=== PATIENT | male | born 1935 | race Caucasian/White ===

== ENCOUNTER 2022-01-19 10:52 | Emergency (ER) | payer OTHER, MEDICARE, BC ==
[2022-01-19 11:36] LABS: ESTIMATED GFR 65 mL/min (>60)
[2022-01-19] MEDS ORDERED: Diphtheria,Pertussis(Acell),Tetanus Vaccine 0.5 ML Syringe IM ONE (11:42)
== END 2022-01-19 13:30 | disposition home or self-care (01) ==
LOC: FB.ED 10:52
DX: S22.32XA Fracture of one rib, left side, initial encounter for closed fracture (principal); S27.321A Contusion of lung, unilateral, initial encounter; S00.01XA Abrasion of scalp, initial encounter; Z88.0 Allergy status to penicillin; Z23 Encounter for immunization; V89.2XXA Person injured in unspecified motor-vehicle accident, traffic, initial encounter; Y92.410 Unspecified street and highway as the place of occurrence of the external cause
CPT/HCPCS: 36415; 71101-LT; 80053; 81001; 85025; 90471; 90715; 99282; 99284-25

== ENCOUNTER 2024-11-01 19:27 | Emergency (ER) | payer MEDICARE, BC ==
[2024-11-01] MEDS ORDERED: Midazolam 1 MG/ML 2 ML SDV IV ONE (19:28)
[2024-11-01] MEDS ORDERED: Propofol 200 MG/20 ML SDV IV ONE (19:28)
[2024-11-01] MEDS ORDERED: fentaNYL 100 MCG/2 ML SDV IV ONE (19:28)
[2024-11-01] MEDS ORDERED: Succinylcholine 200 MG/10 ML MDV IV ONE (19:28)
[2024-11-01] MEDS ORDERED: Rocuronium 100 MG/10 ML MDV IV ONE (19:28)
[2024-11-01 19:58] LABS: HEMATOCRIT 39.2 % (38.3-50.1); MEAN CORPUSCULAR HEMOGLOBIN 30.3 pg (27.0-33.3); MEAN CORPUSCULAR HGB CONC 33.3 g/dL (28.7-35.3); MEAN CORPUSCULAR VOLUME 90.9 fL (80.8-98.7); MEAN PLATELET VOLUME 8.9 fL (6.7-11.0); PLATELET COUNT,PLT 153 x10(3)uL (117-477); RED BLOOD CELL COUNT 4.31 x10(6)uL (3.90-5.90); RED CELL DISTRIBUTION WIDTH 14.4 % (12.4-15.0); WHITE BLOOD CELL COUNT,WBC 15.4 x10-3/uL (3.2-10.1)
[2024-11-01 20:08] LABS: INR 1.04 (1.00-1.24); PROTHROMBIN TIME 10.8 sec (9.0-11.1); PTT,PARTIAL THROMBOPLSTIN TIME 25.3 SECONDS (24.4-33.2)
[2024-11-01 20:10] LABS: A/G RATIO 0.8; ALANINE AMINOTRANSFERASE,ALT 36 U/L (12-36); ALBUMIN 3.5 g/dL (3.2-4.6); ALKALINE PHOSPHATASE 104 IU/L (56-112); ASPARTATE AMNIOTRANSFERASE,AST 74 IU/L (5-25); BILIRUBIN TOTAL 1.3 mg/dL (0.1-1.3); BLOOD UREA NITROGEN,BUN 32 mg/dL (7-18); BUN/CREATININE RATIO 12.3 (9-20); CALCIUM 9.4 mg/dL (8.6-10.2); CARBON DIOXIDE,CO2 14 mmol/L (21-32); CHLORIDE,CL 104 mmol/L (100-110); ESTIMATED GFR 23 mL/min (>60); GLUCOSE RANDOM 314 mg/dL (80-116); POTASSIUM,K 4.8 mmol/L (3.5-5.3); PROTEIN TOTAL,TP 7.8 g/dL (6.0-8.0); SODIUM,NA 138 mmol/L (135-145)
[2024-11-01 20:10] LABS: BILIRUBIN,URINE SMALL (NEGATIVE); GLUCOSE,URINE NORMAL (NORMAL); KETONES,URINE NEGATIVE (NEGATIVE); LEUKOCYTE ESTERASE,URINE NEGATIVE (NEGATIVE); NITRITE,URINE NEGATIVE (NEGATIVE); OCCULT BLOOD,URINE NEGATIVE (NEGATIVE); PROTEIN,URINE 30 mg/dL (NEGATIVE); UROBILINOGEN,URINE NORMAL (NEGATIVE)
[2024-11-01 20:14] LABS: BAND PERCENT MAN 2 % (0-6); EOSINOPHILS PERCENT MAN 1 % (0-5); LYMPHOCYTES PERCENT MAN 7 % (13-37); MONOCYTES PERCENT MAN 9 % (4-12); SEG NEUTROPHILS PERCENT MAN 81 % (46-82)
[2024-11-01 20:15] LABS: CREATININE 2.6 mg/dL (0.70-1.30)
[2024-11-01 20:18] LABS: APPEARANCE,URINE CLEAR (CLEAR); BACTERIA,URINE FEW (NS); COLOR,URINE ORANGE (YELLOW); RBC,URINE 0-5 (0-5); SQUAMOUS EPITHELIAL CELLS,UR FEW (NS,R,O); WBC,URINE 0-5 (0-5)
[2024-11-01] MEDS: Iopamidol 755 Mg/ML 100 ML Bottle IV SCH (20:39)
== END 2024-11-01 20:50 ==
LOC: FB.ED 19:27
DX: R41.82 Altered mental status, unspecified (principal); T24.231A Burn of second degree of right lower leg, initial encounter; S20.219A Contusion of unspecified front wall of thorax, initial encounter; S30.1XXA Contusion of abdominal wall, initial encounter; R79.89 Other specified abnormal findings of blood chemistry; Z88.0 Allergy status to penicillin; Z95.0 Presence of cardiac pacemaker; X58.XXXA Exposure to other specified factors, initial encounter
CPT/HCPCS: 31500; 36415; 51702; 70496; 70498; 71045; 72170; 80053; 81001; 83605; 83690; 84484; 85025; 85610; 85730; 93005; 93010; 99152; 99153; 99285; 99291; 99292; G0390; J0330; J2250; J2704; J3010; Q9967